=== PATIENT | female | born 1995 | race Hispanic/Latino ===

== ENCOUNTER 2017-09-14 10:40 | Emergency (ER) | payer OTHER | END 2017-09-14 12:15 | disposition home or self-care (01) | LOC: H.EROB2 10:40 | DX: O26.93 Pregnancy related conditions, unspecified, third trimester (principal); R10.2 Pelvic and perineal pain; O47.1 False labor at or after 37 completed weeks of gestation; Z3A.37 37 weeks gestation of pregnancy ==

== ENCOUNTER 2017-09-14 18:48 | Inpatient (IN) | payer OTHER ==
--- NOTE | 2017-09-14 19:09 | OBHP ---
Datetime: 09/14/2017 11:00 IP Adm Impression: Term, intrauterine IP Admit Plan: Observation/Evaluation Admit Comment, IP Provider: 22 yo F at ega 37.4 and mayte 10/01/2017 based on lmp of 12/25/2016 p resents with ctx. She shares that ctx started at 08:45 in the lower abdomen and pelvis. Occuring ever y 5-10 minutes lasting approximately 2 minutes. Denies recent intercourse. She shares of some vaginal bleed noted with wiping and in the toilet but no clots. +: movement -: lof, [place]/SOB/N/[place] [facility] [place] x 1 2013 9 wks gyne hx: denies sti mhx: none famhx: dm, htn surg: none soc: denies smoking, alcohol, illict drutgs, rx: pnv nkda PE: Gen: AAOX3 Cardiac: s1s2 no murmurs lungs: clear bilaterally, no wheezing abdo: gravid, nontender, active bowel sounds negative calf tenderness or CVT no pitting edema. Pelvis: cervix closed and long; station -3 22 yo IUP 37.4 - not in active labor, membrane entact - continue monitoring case dw Dr. Maria A diaz MD PGY1 Pt seen and evaluated with the resident and I agree with the above. Pelvic Type - PN: Adequate Extremities - PN: Normal Abdomen - PN: Normal Back - PN: Normal Breast - PN: Not Done Lungs - PN: Normal Heart - PN: Normal Thyroid - PN: Not Done Neurologic - PN: Normal HEENT - PN: Normal General - PN: Normal FHR - Baseline A Provider: 140 EGA AdmitDate IP: 37.4 Vital Signs Provider: Reviewed; Within Normal Limits IP Chief Complaint: Uterine contractions NICHD Variability Prov Fetus A: Moderate 6-25bpm NICHD Accel Fetus A IP Provider: [id number] FHR Category Provider Fetus A: Category I NICHD Decel Fetus A IP Provider: None Dilatation, Provider: 0 Genitourinary Exam: Normal DTRs - PN: Not Done
[2017-09-14 19:27] VITALS: BMI 24.9
[2017-09-14] MEDS ORDERED: Lactated Ringer's 1,000 ML IV SCH (19:30)
[2017-09-14] MEDS ORDERED: Oxytocin 30 UNITS in Sodium Chloride 0.9% 500 ML IV ONE (19:56)
[2017-09-14 20:05] LABS: BASO % 0.1 % (0.0-2.0); HEMOGLOBIN 13.2 g/dL (12.0-16.0); LYMPH % 9.7 % (20.0-40.0); MEAN CELL VOLUME 90.6 fl (81.0-99.0); MEAN CORPUSCULAR HEMOGLOBIN 30.5 pg (27.0-31.0); MEAN CORPUSCULAR HGB CONC 33.7 g/dL (33.0-37.0); MEAN PLATELET VOLUME 8.4 fl (7.2-11.7); MONO # 0.9 K/uL (0.0-0.8); MONO % 4.2 % (0.0-10.0); NEUT # 17.4 K/uL (1.8-7.0); PLATELET COUNT 275 K/uL (130-400); RBC 4.31 Mil/uL (3.80-5.20); RED CELL DISTRIBUTION WIDTH 14.3 % (11.5-14.5); WHITE BLOOD COUNT 20.3 K/uL (4.8-10.8)
[2017-09-14] MEDS ORDERED: Fentanyl/Bupivacaine HCl 250 ML EPI ONE (20:37)
[2017-09-14] MEDS ORDERED: Bupivacaine HCl 0.25% PF (10 ml) Inj ONE (20:37)
[2017-09-14] MEDS ORDERED: Penicillin G 5 Million Unit Vial IVPB ONE (21:19)
[2017-09-14 21:42] LABS: BANDS 3 % (0-2); LYMPHOCYTE 11 % (20-50); MONOCYTE 4 % (0-10); NEUTROPHIL 82 % (42-75); TOTAL CELLS COUNTED 100
[2017-09-14 21:43] LABS: ANISOCYTOSIS SLIGHT; PLATELET ESTIMATE NORMAL (NORMAL)
[2017-09-14 23:03] VITALS: TEMP 98
--- NOTE | 2017-09-15 00:26 | OBHP ---
Datetime: 09/14/2017 19:32 IP Adm Impression: Term, intrauterine IP Admit Plan: Admit to unit; Initiate labor protocol Admit Comment, IP Provider: 22 yo F IUP 37.4 weeks presents with ctx and increased pain since t his morning. She shares that ctx started at 08:45 in the lower abdomen and pelvis. Occuring every 5-1 0 minutes lasting approximately 2 minutes. +: movement,- lof, CP/SOB/N/V [place] [facility] [place] sab x 1 2013 9 wks gyne hx: denies sti mhx: none famhx: dm, htn surg: none soc: denies smoking, alcohol, illict drutgs, rx: pnv nkda PE: Gen: AAOX3 Cardiac: s1s2 no murmurs lungs: clear bilaterally, no wheezing abdo: gravid, nontender, active bowel sounds negative calf tenderness or CVT no pitting edema. TOCO- Q 2-3, FHR - Category 1, Cx- 6-7/80/-2, Membranes intact Pelvis: 6/90/-2 22 yo IUP 37.4 in Active labor Admitt to unit Initiate labor protocol case dw Dr. Maria A Eaton PGY 1 Pt was seen and evaluated with the resident and I agree with the above. Pelvic Type - PN: Adequate Extremities - PN: Normal Abdomen - PN: Normal Back - PN: Normal Breast - PN: Normal Lungs - PN: Normal Heart - PN: Normal Thyroid - PN: Normal Neurologic - PN: Normal HEENT - PN: Normal General - PN: Normal FHR - Baseline A Provider: 144 Membranes, Provider: Intact EGA AdmitDate IP: 37.3 Vital Signs Provider: Reviewed IP Chief Complaint: Uterine contractions NICHD Variability Prov Fetus A: Moderate 6-25bpm NICHD Accel Fetus A IP Provider: [id number] FHR Category Provider Fetus A: Category I NICHD Decel Fetus A IP Provider: None Dilatation, Provider: 6 Effacement, Provider: 90 Station, Provider: -2 Genitourinary Exam: Normal DTRs - PN: Normal
[2017-09-15] MEDS ORDERED: Lidocaine 1% Inj (20ml) ONE (01:17)
[2017-09-15] MEDS ORDERED: Benzocaine/Menthol SPRAY TOP PRN (03:26)
--- NOTE | 2017-09-15 04:20 | OBDS ---
DELIVERY PERSONNEL Delivery Doctor: Romaine Saha MD Shorthand Teacher: Jose A Chavez RN Anesthesiologist: Dre Bowers MD Resident: Milagros MATTHEWS MATERNAL INFORMATION Delivery Anesthesia: Epidural Medications in Delivery: 30/500 pit, pit Estimated Blood Loss (ml): 350 Placenta Cultured: No Maternal Complications: None Provider Comments: Uncomplicated spontaneous vaginal delivery of a viable female infant with BW of 6 Ibs 15 oz and scores of 9 and 9, delivered over a second degree perineal laceration which was r epaired with 2-0 chromic ith good cosmesis under local anesthesia with 1% lidocaine. LABOR SUMMARY EDC: 10/01/2017 00:00 No. Babies in Womb: 1 Attempted: No Labor Anesthesia: Epidural LABOR INFORMATION Reason for Induction: Not Applicable Onset of Labor: 09/14/2017 17:45 Complete Dilatation: 09/15/2017 00:30 Oxytocin: N/A Group B Beta Strep: Done, Result Unknown Antibiotics # of Doses: 2 Antibiotics Time of Last Dose: 0159 Steroids Given: None Reason Steroids Not Administered: Not Applicable MEMBRANES Membranes Rupture Method: Artificial Rupture of Membranes: 09/14/2017 22:15 Length of Rupture (hrs): 4.63 Amniotic Fluid Color: Clear Amniotic Fluid Amount: Small Amniotic Fluid Odor: Normal STAGES OF LABOR Stage 1 hrs: 6 Stage 1 min: 45 Stage 2 hrs: 2 Stage 2 min: 23 Stage 3 hrs: 0 Stage 3 min: 7 Total Time in Labor hrs: 9 Total Time in Labor min: 15 VAGINAL DELIVERY Episiotomy: None Laceration Extension: Second Degree Laceration Type: Perineal Laceration Repair: Yes Initial Vag Sponge Count: 5 Final Vag Sponge Count: 5 Initial Vag Sharps Count: 2 Final Vag Sharps Count: 2 Sponge Count Correct: Yes Sharps Count Correct: Yes BABY A INFORMATION Delivery Date/Time: 09/15/2017 02:53 Method of Delivery: Vaginal Born in Route : No : N/A Forceps: N/A Vacuum Extraction: N/A Shoulder Dystocia : No SHOULDER DYSTOCIA BABY A Infant Delivery Date/Time: 09/15/2017 02:53 PRESENTATION/POSITION BABY A Presentation: Cephalic Cephalic Presentation: Vertex Breech Presentation: N/A PLACENTA INFORMATION BABY A Placenta Delivery Time : 09/15/2017 03:00 Placenta Method of Delivery: Spontaneous Placenta Status: Delivered SCORES BABY A Heart Rate 1 min: >100 bpm Resp Effort 1 min: Good Cry Reflex Irritability 1 min: Cough or Sneeze or Pulls Away Muscle Tone 1 min: Active Motion Color 1 min: Blue/Pale SCORE 1 MIN: 8 Heart Rate 5 min: >100 bpm Resp Effort 5 min: Good Cry Reflex Irritability 5 min: Cough or Sneeze or Pulls Away Muscle Tone 5 min: Active Motion Color 5 min: Body [place], Extremities Blue SCORE 5 MIN: 9 INFORMATION BABY A Gestational Age at Delivery: 37.4 Gestational Status: Term Outcome : Liveborn Infant Condition : Stable Sex: Female WEIGHT/LENGTH BABY A Birthweight (gms): 3145 Weight (lb): 6 Infant Weight (oz): 15 Length Inches: 20.87 Infant Length cms: 53.0 CORD INFORMATION BABY A No. Cord Vessels: 3 Nuchal Cord : N/A Cord Blood Taken: Yes Suction: Mouth; Nose
[2017-09-15] MEDS: Benzocaine/Menthol SPRAY TOP PRN (06:53)
[2017-09-16 06:29] LABS: BASO % 0.2 % (0.0-2.0); EOS % 0.2 % (0.0-4.0); HEMOGLOBIN 8.8 g/dL (12.0-16.0); LYMPH % 20.4 % (20.0-40.0); MEAN CELL VOLUME 92.5 fl (81.0-99.0); MEAN CORPUSCULAR HEMOGLOBIN 30.3 pg (27.0-31.0); MEAN CORPUSCULAR HGB CONC 32.8 g/dL (33.0-37.0); MEAN PLATELET VOLUME 8.1 fl (7.2-11.7); MONO % 4.9 % (0.0-10.0); NEUT # 14.5 K/uL (1.8-7.0); NEUT % 74.3 % (50.0-75.0); RBC 2.89 Mil/uL (3.80-5.20); RED CELL DISTRIBUTION WIDTH 14.2 % (11.5-14.5); WHITE BLOOD COUNT 19.5 K/uL (4.8-10.8)
[2017-09-16] MEDS: Benzocaine/Menthol SPRAY TOP PRN (08:44)
--- NOTE | 2017-09-16 10:14 | OBPPN ---
Datetime: 09/16/2017 06:26 PP Pain Prov: Within normal limits PP Nausea Prov: Denies PP Flatus Prov: Yes PP BM Prov: Yes PP Breasts Prov: Not Done PP Heart Prov: Normal PP Lungs Prov: Normal PP Abdomen/Uterus Prov: Normal PP Lochia Prov: Normal PP Vulva/Perineum Prov: Normal PP CVA Tenderness Prov: Not Done PP Extremities Prov: Normal PP C/S Incision Prov: Not Applicable PP Progress Prov: Normal PP Impression Prov: Normal progression PP Plan Prov: Continue present management PP Progress Note Prov: S: 22 yo s/p NVD. Pt. is seen and examined at bedside this morning. N o overnight events. Pt reports occasional abdominal pain, but well controlled with pain meds. Pt is a mbulating without any difficulties. Breast/bottle feeding baby. Tolerating PO diet. Lochia is similar to light menses in volume. Voiding freely, + BM and passing gas per rectum. Denies fever/chills, lisa rrhea, nausea/vomiting, chest pain, dyspnea, and dizziness. O: VS: stable GEN: NAD Cardio: s1s2, no m/r/g Resp: clear breath sounds b/l Abdomen: BS+, NT, Uterus is firm and at the level of the umbilicus. EXT: No edema, calves nontender NEURO/PSYCHI: AAOx3, no grossly focal deficit, preserved affect and mood. A/P: 22 yo s/p NVD. Pt remains afebrile, tolerating pain with medication, doing well on P PD 1. OOB with caution. SCDs for DVT prophylaxis, pt ambulating Ibuprofen 600mg for pain. Colace 100mg PO BID for constipation Encourage . PP CBC: pending Anticipated d/c: 09/17/2017 YBecerra PGY 1 The patient was seen with the resident I agree with the note. MD Nell IP PP Procedures: None Vital Signs Provider PP: Reviewed
[2017-09-17] MEDS ORDERED: Measles, Mumps, and Rubella 0.5 ML VIAL SC ONE (11:00)
[2017-09-17 17:09] VITALS: BP 95/60; PULSE 76; RESP 20; O2SAT 100
== END 2017-09-17 12:00 | disposition home or self-care (01) | DRG 373 ==
LOC: H.EROB2 18:48 → H.L&D 19:28 → H.OB/GYN 09-15 05:50
PROVIDERS: ADMIT Obstetrics & Gynecology; ATTEND Obstetrics & Gynecology
PROC: 4A1HXCZ Monitoring of Products of Conception, Cardiac Rate, External Approach (ICD-10-PCS; 2017-09-14)
PROC: 0KQM0ZZ Repair Perineum Muscle, Open Approach (ICD-10-PCS; principal; 2017-09-15)
PROC: 10E0XZZ Delivery of Products of Conception, External Approach (ICD-10-PCS; 2017-09-15)
DX: O70.1 Second degree perineal laceration during delivery (principal); K59.00 Constipation, unspecified; Z37.0 Single live birth; Z3A.37 37 weeks gestation of pregnancy